=== PATIENT | female | born 1975 | race Caucasian/White ===

== ENCOUNTER → 2021-07-18 | Outpatient (RCR) | payer BC | LOC: PT 07-15 07:39 | PROVIDERS: ATTEND Podiatrist Foot & Ankle Surgery | DX: M76.62 Achilles tendinitis, left leg (principal) ==

== ENCOUNTER 2021-08-12 10:56 | Outpatient (RCR) | payer BC | END 2021-08-18 | LOC: PT 10:56 | PROVIDERS: ATTEND Podiatrist Foot & Ankle Surgery | DX: M76.62 Achilles tendinitis, left leg (principal); R60.9 Edema, unspecified; M62.562 Muscle wasting and atrophy, not elsewhere classified, left lower leg ==

== ENCOUNTER 2025-04-10 11:25 | Emergency (ER) | payer BC ==
[~2025-04-10] VITALS: Ht 172.7 cm; Wt 123.4 kg
[2025-04-10 11:48] VITALS: PULSE 85; RESP 17; TEMP 98.1; O2SAT 100
== END 2025-04-10 13:15 | disposition home or self-care (01) ==
LOC: ER 12:18
DX: M25.561 Pain in right knee (principal); S83.8X1A Sprain of other specified parts of right knee, initial encounter; Y93.01 Activity, walking, marching and hiking; Y92.89 Other specified places as the place of occurrence of the external cause; I10 Essential (primary) hypertension; E11.9 Type 2 diabetes mellitus without complications; E78.5 Hyperlipidemia, unspecified; F41.9 Anxiety disorder, unspecified; Z98.84 Bariatric surgery status
CPT/HCPCS: 99283